=== PATIENT | female | born 1985 | race Caucasian/White ===

== ENCOUNTER 2019-10-28 16:49 | Emergency (ER) | payer BC ==
--- NOTE | 2019-10-28 17:03 | EDM.PDOC ---
ED HPI GENERAL MEDICAL PROBLEM - General Chief Complaint: Respiratory Problem Stated Complaint: sick Time Seen by Provider: 10/28/19 16:51 Source of Information: Reports: Patient History Limitations: Reports: No Limitations - History of Present Illness INITIAL COMMENTS - FREE TEXT/NARRATIVE: HISTORY AND PHYSICAL: History of present illness: Patient is a 33-year-old female who presents to the emergency room with complaints of a dry nonproductive cough x1 week. She states she has had a history of walking pneumonia and bronchitis, this feels similar. Patient denies any fever, chills, headache, change in vision, syncope or near syncope. Denies any chest pain, back pain, shortness of breath. Denies any GI or symptoms. Patient has been eating and drinking appropriately. Due to the COVID- 19 pandemic, patient has been at home and denies any exposure to anyone who's been ill. No recent travel. Review of systems: As per history of present illness and below otherwise all systems reviewed and negative. Past medical history: As per history of present illness and as reviewed below otherwise noncontributory. Surgical history: As per history of present illness and as reviewed below otherwise noncontributory. Social history: See social history for further information Family history: As per history of present illness and as reviewed below otherwise noncontributory. Physical exam: General: Well-developed and well-nourished 33-year-old female. Alert and oriented. Nontoxic-appearing and in no acute distress. HEENT: Atraumatic, normocephalic, pupils equal and reactive bilaterally, negative for conjunctival pallor or scleral icterus, mucous membranes moist, TMs normal bilaterally, throat clear, neck supple, nontender, trachea midline. No drooling or trismus noted. No meningeal signs. No hot potato voice noted. Lungs: Clear to auscultation, breath sounds equal bilaterally, chest nontender. Dry nonproductive cough noted. Heart: S1S2, regular rate and rhythm without overt murmur Abdomen: Soft, nondistended, nontender. Negative for masses or hepatosplenomegaly. Negative for costovertebral tenderness. Skin: Intact, warm, dry. No lesions or rashes noted. Extremities: Atraumatic, moves all extremities per self without difficulty or deficits, negative for cords or calf pain. Neurovascular unremarkable. Neuro: Awake, alert, oriented. Cranial nerves II through XII unremarkable. Cerebellum unremarkable. Motor and sensory unremarkable throughout. Exam nonfocal. Notes: Negative chest x-ray. Due to longevity of symptoms I will treat with a Z-Roberto Carlos. She states she has tried multiple [id number] medications but has not had a decent night sleep due to the cough. We discussed signs and symptoms that would prompt her to return to the emergency room. Supportive care measures were reviewed and discussed. Voices understanding and is agreeable to plan of care. Denies any further questions or concerns at this time. Diagnostics: CXR Therapeutics: None Prescription: Zpak and Cheratussin Impression: Bronchitis Plan: 1. Please use Tylenol and/or Ibuprofen as needed for pain and fever management. 2. Get plenty of Rest. Encourage fluids to prevent dehydration. 3. Please follow up with your primary care provider. Return to the ED as needed as discussed. Definitive disposition and diagnosis as appropriate pending reevaluation and review of above. - Related Data Allergies Allergy/AdvReac Type Severity Reaction Status Date / Time No Known Allergies Allergy Verified 01/30/14 13:59 Home Meds: Home Meds . [No Known Home Meds] 10/28/19 [History] Past Medical History Psychiatric History: Reports: Depression ED ROS GENERAL - Review of Systems Review Of Systems: Comprehensive ROS is negative, except as noted in HPI. ED EXAM, GENERAL - Physical Exam Exam: See Below (See dictation) Course - Vital Signs Last Recorded V/S: Last Vital Signs Temp 97.2 F 10/28/19 16:51 Pulse 80 10/28/19 16:51 Resp 18 10/28/19 16:51 BP 141/93 H 10/28/19 16:51 Pulse Ox 98 10/28/19 16:51 Departure - Departure Time of Disposition: 17:28 Disposition: Home, Self-Care 01 Clinical Impression: Bronchitis - Discharge Information Instructions: Acute Bronchitis, Adult, [id number] Referrals: Ayah Horowitz NP [Primary Care Provider] - Forms: ED Department Discharge Additional Instructions: The following information is given to patients seen in the emergency department who are being discharged to home. This information is to outline your options for follow-up care. We provide all patients seen in our emergency department with a follow-up referral. The need for follow-up, as well as the timing and circumstances, are variable depending upon the specifics of your emergency department visit. If you don't have a primary care physician on staff, we will provide you with a referral. We always advise you to contact your personal physician following an emergency department visit to inform them of the circumstance of the visit and for follow-up with them and/or the need for any referrals to a consulting specialist. The emergency department will also refer you to a specialist when appropriate. This referral assures that you have the opportunity for follow-up care with a specialist. All of these measure are taken in an effort to provide you with optimal care, which includes your follow-up. Under all circumstances we always encourage you to contact your private physician who remains a resource for coordinating your care. When calling for follow-up care, please make the office aware that this follow-up is from your recent emergency room visit. If for any reason you are refused follow-up, please contact the [facility] at and asked to speak to the emergency department charge nurse. [facility] [address] [place] [address] [place] [address] 1. Please use Tylenol and/or Ibuprofen as needed for pain and fever management. 2. Get plenty of Rest. Encourage fluids to prevent dehydration. 3. Please follow up with your primary care provider. Return to the ED as needed as discussed. Sepsis Event Note - Evaluation Sepsis Screening Result: No Definite Risk - Focused Exam Vital Signs: Vital Signs Temp Pulse Resp BP Pulse Ox 10/28/19 16:51 97.2 F 80 18 141/93 H 98 Date Exam was Performed: 10/28/19 Time Exam was Performed: 17:30
--- NOTE | 2019-10-28 17:29 | CR ---
INDICATION: Six-day history of cough TECHNIQUE: Chest 2 views. COMPARISON: None FINDINGS: Cardiovascular and mediastinum: Heart size and vasculature are normal in caliber and appearance. Mediastinum is within normal limits. Lungs and pleural spaces: Lungs are clear. No sign of infiltrate or mass. No sign of pleural effusion. No pneumothorax. Bones and soft tissues: No significant findings. IMPRESSION: No sign of acute disease. Dictated by Delia Jackson MD @ Oct 28 2019 5:27PM Signed by Dr. Delia Jackson @ Oct 28 2019 5:28PM
== END 2019-10-28 17:40 | disposition home or self-care (01) ==
LOC: MW.ED 16:49
DX: J40 Bronchitis, not specified as acute or chronic (principal)
CPT/HCPCS: 71046; 71046-26; 99282; 99283-25

== ENCOUNTER 2021-06-05 20:26 | Emergency (ER) | payer BC | END 2021-06-05 23:00 | disposition left against medical advice (07) | LOC: MW.ED 20:26 | DX: Z53.21 Procedure and treatment not carried out due to patient leaving prior to being seen by health care provider (principal) ==